=== PATIENT | female | born 1930 | race Caucasian/White ===

== ENCOUNTER → 2017-05-23 | Outpatient (CLI) | payer OTHER ==
--- NOTE | 2017-05-23 19:03 | Diagnostic Imaging Report ---
History: Dizziness Comparison studies: None Technique: Sagittal T2; axial DWI, FLAIR, MPGR, T1, Coronal FLAIR. Intravenous contrast: None Findings: Scalp: Normal in signal . No masses . Bone marrow: Normal in signal intensity. Extra-axial: No masses, no fluid collections. Brain sulci: Moderately prominent. Ventricles: Moderately prominent . No hydrocephalus . Parenchyma: Scattered small T2/FLAIR hyperintensities of the periventricular and deep white matter No masses, hemorrhage, acute or chronic vascular insults. Suprasellar region: No abnormalities. Craniocervical junction: No abnormalities. Patent foramen magnum. No Chiari one malformation. Vessels: Normal flow-voids in the arteries and sinuses. Bilateral cataract surgery changes. IMPRESSION: 1. No acute intracranial abnormality. 2. 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 on 05/23/2017 6:59 PM
== END ==
LOC: CARD 14:23
PROVIDERS: ATTEND Family Medicine
DX: R42 Dizziness and giddiness (principal)
CPT/HCPCS: 70551; 93306; 93880